=== PATIENT | female | born 1955 | race Caucasian/White ===

== ENCOUNTER → 2016-04-23 | Outpatient (CLI) | payer OTHER ==
[~2016-04-23] MED LIST: ACIDOPHILIS PO; AMITRIPTYLINE H25 M1 PO; ASPI325T6 PO; ASPIRIN 81M81 MG/TA2 PO; BYDUREON P2 MG/0.65; CALCIUM 500 W/V1 TAB PO; CALCIUM 600MG+D1 TAB PO; CELEBREX 200MG200 MG PO; CENTRUM SILVER1 TAB PO; COLACE 100100 MG/CAP PO; FLONASEALLERGY NS; FOLIC ACID 40400 MCG PO; FOLIC ACID0.4 MG PO; GLUCOPHAGE500 MG/TAB PO; IRON325 MG PO; LEVOXYL0.125 MG PO; LIPITOR 10MG10 MG PO; MICARDIS80 MG PO; MIRALAX PA17 GM/Dose PO; MULTI VITAMINS1 TAB PO; NORCO 325 MG-51 TAB PO; NORCO 325 MG-7.1 TAB PO; OMEGA 31000 MG PO; OMEGA-3 1000 MG1 CAP PO; ROXICODONE 55 MG/TAB PO; SYNTHROID0.112 MG/T PO; TOPROL XL 25MG25 MG PO; TOPROL XL 50MG50 MG PO; TRICOR145 MG PO; VITAMIN C500 MG PO; VITAMIN D 50,1.25 MG PO; VITAMIND3 5000; ZYRTEC 10MG10 MG PO
== END ==
LOC: MC.RAD 11:40
DX: Z12.31 Encounter for screening mammogram for malignant neoplasm of breast (principal); R92.1 Mammographic calcification found on diagnostic imaging of breast

== ENCOUNTER 2016-08-30 12:58 | Emergency (ER) | payer OTHER ==
[~2016-08-30] VITALS: Ht 170.2 cm; Wt 85.9 kg
[~2016-08-30 12:58] MED LIST changes: -BYDUREON P2 MG/0.65; -LIPITOR 10MG10 MG PO; -MIRALAX PA17 GM/Dose PO; -MULTI VITAMINS1 TAB PO; -NORCO 325 MG-51 TAB PO; -OMEGA-3 1000 MG1 CAP PO; -TOPROL XL 50MG50 MG PO; -VITAMIN D 50,1.25 MG PO
[2016-08-30 13:00] VITALS: PULSE 83; TEMP 98.8
[2016-08-30] MEDS ORDERED: TOPROL XL 50MG50 MG PO (14:15)
[2016-08-30] MEDS ORDERED: OMEGA-3 1000 MG1 CAP PO (14:17)
[2016-08-30] MEDS ORDERED: CELEBREX 200MG200 MG PO (14:18)
[2016-08-30] MEDS ORDERED: MULTI VITAMINS1 TAB PO (14:18)
[2016-08-30] MEDS ORDERED: NORCO 325 MG-51 TAB PO (14:37)
[2016-08-30 15:07] VITALS: BP 140/82
== END 2016-08-30 15:10 | disposition home or self-care (01) ==
LOC: COL.ER 12:58
DX: M25.562 Pain in left knee (principal); Z96.651 Presence of right artificial knee joint; M25.462 Effusion, left knee
CPT/HCPCS: J2270; L1830

== ENCOUNTER 2016-09-24 09:04 | Inpatient (IN) | payer OTHER ==
[~2016-09-24] VITALS: Ht 170.2 cm; Wt 79.2 kg
[~2016-09-24 09:04] MED LIST changes: +MULTI VITAMINS1 TAB PO; +NORCO 325 MG-51 TAB PO; +OMEGA-3 1000 MG1 CAP PO; +TOPROL XL 50MG50 MG PO
[2016-10-29] VITALS (12 sets, daily range): BP systolic 107–142; BP diastolic 52–68; PULSE 52–67; TEMP 98.1–98.3
[2016-10-29] MEDS ORDERED: LIPITOR 10MG10 MG PO (07:48)
[2016-10-29] MEDS ORDERED: VITAMIN D 50,1.25 MG PO (07:49)
[2016-10-29] MEDS ORDERED: BYDUREON P2 MG/0.65 (07:50)
[2016-10-29] MEDS ORDERED: MIRALAX PA17 GM/Dose PO (08:13)
[2016-10-30 04:01] VITALS: BP 111/51; PULSE 58; TEMP 98.7
[2016-10-30 05:55] LABS: HEMATOCRIT 32.1 % (37.0-47.0)
[2016-10-30 08:00] VITALS: BP 115/55; PULSE 61; TEMP 98.4
[2016-10-30 12:01] VITALS: BP 115/63; PULSE 57; TEMP 98.4
[2016-10-30 15:26] VITALS: BP 151/56; PULSE 66; TEMP 98.6
[2016-10-30 21:12] VITALS: BP 158/65; PULSE 77; TEMP 98.2
[2016-10-31 00:14] VITALS: BP 156/53; PULSE 80; TEMP 98.9
[2016-10-31 04:26] VITALS: BP 147/61; PULSE 57; TEMP 99
[2016-10-31 07:04] LABS: HEMATOCRIT 33.5 % (37.0-47.0); HEMOGLOBIN 11.4 g/dl (12.5-16.0)
[2016-10-31 08:00] VITALS: BP 165/77; PULSE 80; TEMP 98
[2016-10-31] MEDS ORDERED: NORCO 325 MG-7.1 TAB PO (11:44)
[2016-10-31] MEDS ORDERED: ROXICODONE 55 MG/TAB PO (11:45)
== END 2016-10-31 14:20 | disposition home or self-care (01) | DRG 470 ==
LOC: JCC 10-29 06:29
PROVIDERS: Orthopaedic Surgery
PROC: 0SRD0J9 Replacement of Left Knee Joint with Synthetic Substitute, Cemented, Open Approach (ICD-10-PCS; principal; 2016-10-29 10:15)
DX: M17.12 Unilateral primary osteoarthritis, left knee (principal); Z85.3 Personal history of malignant neoplasm of breast; Z87.891 Personal history of nicotine dependence
CPT/HCPCS: A4315; A9284; C1713; C1776; J0690; J1100; J2250; J2270; J2405; J2704; J2765; J3010; J3260; J7030

== ENCOUNTER → 2016-10-20 | Outpatient (CLI) | payer OTHER ==
[~2016-10-20] MED LIST changes: +BYDUREON P2 MG/0.65; +LIPITOR 10MG10 MG PO; +MIRALAX PA17 GM/Dose PO; +VITAMIN D 50,1.25 MG PO
[2016-10-20 11:47] LABS: HIV 1/2 Antibodies Non-Reactive; HIV-1p24 Antigen Non-Reactive
== END ==
LOC: COL.LAB 10:07
PROVIDERS: Orthopaedic Surgery
DX: M25.862 Other specified joint disorders, left knee (principal)

== ENCOUNTER → 2017-04-24 | Outpatient (CLI) | payer OTHER | LOC: MC.RAD 09:32 | DX: Z12.31 Encounter for screening mammogram for malignant neoplasm of breast (principal); Z98.890 Other specified postprocedural states ==